=== PATIENT | female | born 1985 | race Caucasian/White ===

== ENCOUNTER 2020-01-11 16:26 | Emergency (ER) | payer MEDICARE, MEDICAID ==
[~2020-01-11] VITALS: Ht 157.5 cm; Wt 156.8 kg
[2020-01-11 17:15] VITALS: BP 145/91
--- NOTE | 2020-01-11 18:49 | RAD ---
EXAM: FOOT RIGHT 3V, KNEE RIGHT 3V 01/11/2020 5:30 PM CLINICAL INDICATION:Right knee and foot pain after fall one week ago COMPARISON:None TECHNIQUE:3 views of the right knee, 3 views of the right foot FINDINGS: Right knee: No acute fracture. Alignment is normal. Enlargement and chronic fragmentation of the tibial tubercle is sequela of Jossie-Schlatter's disease. There are tiny patellofemoral and medial osteophytes. No definite joint effusion. Right foot: No acute fracture. Alignment is normal. There is an os trigonum and small calcaneal enthesophytes. No soft tissue abnormality. IMPRESSION:No acute osseous abnormality of the right knee or right foot. Electronically signed by: Gracie Moses MD (01/11/2020 6:46 PM) [id number]
[2020-01-11] MEDS ORDERED: NAPR-514 PO (19:20)
[2020-01-11] MEDS ORDERED: METH4TAB2 PO (19:20)
--- NOTE | 2020-01-11 19:20 | PHYS DOC ---
Past Medical History Past Medical History: No Pertinent History Past Surgical History: No Surgical History Smoking Status: Never Smoker Alcohol Use: None General Adult EDM: Chief Complaint: LOWER EXT PAIN HPI: HPI: Patient is a 34 year old female who presents to the ED today with 6 out of 10 throbbing intermittent right knee and right foot pain that began a week ago after she fell down some steps helping somebody move a couch. Patient states the pain is worse on range of motion, denies anything specifically relieving the pain. Review of Systems: Review of Systems: Constitutional: Denies fever or chills. [] Eyes: Denies change in visual acuity. [] HENT: Denies nasal congestion or sore throat. [] Respiratory: Denies cough or shortness of breath. [] Cardiovascular: Denies chest pain or edema. [] GI: Denies abdominal pain, nausea, vomiting, bloody stools or diarrhea. [] : Denies dysuria. [] Musculoskeletal: Reports right knee, right foot pain Integument: Denies rash. [] Neurologic: Denies headache, focal weakness or sensory changes. [] Psychiatric: Denies depression or anxiety. [] Heart Score: Risk Factors: Risk Factors: DM, Current or recent (<one month) smoker, HTN, HLP, family history of CAD, obesity. Risk Scores: Score 0 - 3: 2.5% MACE over next 6 weeks - Discharge Home Score 4 - 6: 20.3% MACE over next 6 weeks - Admit for Clinical Observation Score 7 - 10: 72.7% MACE over next 6 weeks - Early Invasive Strategies Physical Exam: PE: Constitutional: Well developed, well nourished, no acute distress, non-toxic appearance. [] Skin: Warm, dry, no erythema, no rash. [] Back: No tenderness, no CVA tenderness. [] Extremities: Morbidly obese patient, right knee and right foot with bruising on the ventral aspect. Full range of motion to the right foot and knee. +2 right pedal pulse. Cap refill less than 2 seconds the right lower extremity Neurologic: Alert and oriented X 3, normal motor function, normal sensory function, no focal deficits noted. [] Psychologic: Affect normal, judgement normal, mood normal. [] Current Patient Data: Vital Signs: Vital Signs Date Time Temp Pulse Resp B/P (MAP) Pulse Ox O2 Delivery O2 Flow Rate FiO2 01/11/20 17:15 98.6 89 20 145/91 (109) 96 Room Air 98.6 EKG: EKG: [] Radiology/Procedures: Radiology/Procedures: []PROCEDURE: FOOT RIGHT 3V EXAM: FOOT RIGHT 3V, KNEE RIGHT 3V 01/11/2020 5:30 PM CLINICAL INDICATION:Right knee and foot pain after fall one week ago COMPARISON:None TECHNIQUE:3 views of the right knee, 3 views of the right foot FINDINGS: Right knee: No acute fracture. Alignment is normal. Enlargement and chronic fragmentation of the tibial tubercle is sequela of Jossie-Schlatter's disease. There are tiny patellofemoral and medial osteophytes. No definite joint effusion. Right foot: No acute fracture. Alignment is normal. There is an os trigonum and small calcaneal enthesophytes. No soft tissue abnormality. IMPRESSION:No acute osseous abnormality of the right knee or right foot. Electronically signed by: Gracie Moses MD (01/11/2020 6:46 PM) [id number] DICTATED and SIGNED BY: GRACIE MOSES MD DATE: 01/11/201845 PROCEDURE: KNEE RIGHT 3V EXAM: FOOT RIGHT 3V, KNEE RIGHT 3V 01/11/2020 5:30 PM CLINICAL INDICATION:Right knee and foot pain after fall one week ago COMPARISON:None TECHNIQUE:3 views of the right knee, 3 views of the right foot FINDINGS: Right knee: No acute fracture. Alignment is normal. Enlargement and chronic fragmentation of the tibial tubercle is sequela of Jossie-Schlatter's disease. There are tiny patellofemoral and medial osteophytes. No definite joint effusion. Right foot: No acute fracture. Alignment is normal. There is an os trigonum and small calcaneal enthesophytes. No soft tissue abnormality. IMPRESSION:No acute osseous abnormality of the right knee or right foot. Electronically signed by: Gracie Moses MD (01/11/2020 6:46 PM) [id number] DICTATED and SIGNED BY: GRACIE MOSES MD DATE: 01/11/201845 Course & Med Decision Making: Course & Med Decision Making Pertinent Labs and Imaging studies reviewed. (See chart for details) This is a 34-year-old female patient presenting to the ED today with right foot and right knee pain after falling a week ago. Right foot and right knee x-rays are negative for any acute findings. Tetanus up-to-date. Ice elevation encouraged. Follow-up with orthopedic doctor in 1 to 2 weeks. Shanique Disclaimer: [employer] Disclaimer: This electronic medical record was generated, in whole or in part, using a voice recognition dictation system. Departure Departure Impression: Primary Impression: Right knee pain Qualified Codes: M25.561 - Pain in right knee Additional Impressions: Right foot pain Fall down steps Qualified Codes: W10.8XXA - Fall (on) (from) other stairs and steps, initial encounter Disposition: HOME, SELF-CARE Condition: STABLE Referrals: NO PCP (PCP) ARTHUR JONES II, MD follow up in one week Patient Instructions: Contusion, [id number] Additional Instructions: You were evaluated in the emergency room, your x-rays were negative for any acute findings. Try to ice and elevate the affected areas. Apply Neosporin to the bruised areas. Follow-up with your own doctor or the provided orthopedic doctor in 1 to 2 weeks Scripts Naproxen (NAPROXEN) 500 Mg Tablet 1 TAB PO BID for pain, #14 TAB 0 Refills Prov: GILES LIM APRN 01/11/20 Methylprednisolone (MEDROL) 4 Mg Tab.ds.pk 1 PKG PO UD, #1 PKG Prov: GILES LIM APRN 01/11/20 Justicifation of Admission Dx: Justifications for Admission: Justification of Admission Dx: N/A GILES LIM APRN Jan 11, 2020 19:20
== END 2020-01-11 19:25 | disposition home or self-care (01) ==
LOC: ER 16:26
DX: S90.31XA Contusion of right foot, initial encounter (principal); M25.561 Pain in right knee; W10.8XXA Fall (on) (from) other stairs and steps, initial encounter; Y93.89 Activity, other specified; Y92.89 Other specified places as the place of occurrence of the external cause; Y99.8 Other external cause status
CPT/HCPCS: 73562; 73630; 99284